=== PATIENT | male | born 1975 | race Hispanic/Latino ===

== ENCOUNTER 2017-07-26 19:49 | Emergency (ER) | payer MEDICAID, OTHER ==
[2017-07-26 20:24] LABS: APPEARANCE,URINE CLEAR (CLEAR); COLOR,URINE YELLOW (YELLOW); GLUCOSE, URINE (UA) NEGATIVE (NEGATIVE); PH,URINE 5.5 (5.0-8.0); PROTEIN,URINE NEGATIVE (NEGATIVE)
[2017-07-26 20:25] LABS: BILIRUBIN,URINE NEGATIVE (NEGATIVE); KETONES,URINE NEGATIVE (NEGATIVE); LEUKOCYTE ESTERASE ,URINE NEGATIVE (NEGATIVE); NITRATE,URINE NEGATIVE (NEGATIVE); OCCULT BLOOD,URINE TRACE-INTACT (NEGATIVE); UROBILINOGEN,URINE 0.2 mg/dL (0.2-1.0)
[2017-07-26 20:49] LABS: BACTERIA,URINE Rare /HPF (None Seen); RBC,URINE 0-1 /HPF (0-1); WBC,URINE None Seen /HPF (0-1)
[2017-07-26] MEDS ORDERED: HYDROCODONE/ACETAMINOPHEN 10/325 MG TAB ONE (21:15)
== END 2017-07-26 22:31 | disposition home or self-care (01) ==
LOC: EDH 19:49
DX: M54.5 Low back pain (principal); Z98.890 Other specified postprocedural states; Z79.899 Other long term (current) drug therapy; Z72.0 Tobacco use
CPT/HCPCS: 72100; 81001

== ENCOUNTER 2018-05-30 14:14 | Emergency (ER) | payer MEDICAID, OTHER ==
[2018-05-30] MEDS ORDERED: ORPHENADRINE CITRATE 30 MG/ML ML ONE (14:37)
[2018-05-30] MEDS ORDERED: DEXAMETHASONE SOD PHOSPHATE 10MG/ML 1ML VIAL ONE (14:37)
[2018-05-30] MEDS ORDERED: KETOROLAC TROMETHAMINE 60 MG/2 ML VIAL ONE (14:38)
== END 2018-05-30 15:41 | disposition home or self-care (01) ==
LOC: EDH 14:14
DX: G89.29 Other chronic pain (principal); M54.5 Low back pain; Z98.890 Other specified postprocedural states; Z72.0 Tobacco use
CPT/HCPCS: 96372 ×3; 99283; J1100; J1885; J2360

== ENCOUNTER → 2018-08-01 | Outpatient (CLI) | payer OTHER | END | disposition home or self-care (01) | LOC: OIH 13:58 | PROVIDERS: ATTEND Internal Medicine | DX: M54.5 Low back pain (principal) | CPT/HCPCS: 72100 ==